=== PATIENT | male | born 1990 | race Caucasian/White ===

== ENCOUNTER 2017-03-18 17:12 | Emergency (ER) | payer BC ==
[2017-03-18 17:22] VITALS: BP 155/99
[2017-03-18] MEDS ORDERED: Ibuprofen TAB* 800 MG PO ONE (19:24)
--- NOTE | 2017-03-18 19:38 | ED ---
Throat Pain/Nasal Congestion - HPI Summary HPI Summary: Pt here w/ Lt side facial swelling today. Has had Lt upper dental pain for a couple of days. Previous crack in tooth here. Has been eating and drinking well w/o difficulty - no trouble breathing or swallowing. Denies fever, chills, N/V/D , cough, DOMINGUEZ, neck pain/stiffness. Has tried tylenol, oragel, mouthwash w/o relief of facial swelling. Also noticed he has a bump on his gums. Denies drainage or foul taste in mouth. - History of Current Complaint Chief Complaint: EDDentalPain Time Seen by Provider: 03/18/17 18:31 Hx Obtained From: Patient - Allergies/Home Medications Allergies/Adverse Reactions: Allergies Allergy/AdvReac Type Severity Reaction Status Date / Time Penicillins [PCN] Allergy Hives Verified 03/18/17 17:18 PMH/Surg Hx/FS Hx/Imm Hx Previously Healthy: Yes Endocrine/Hematology History: Denies: Hx Anticoagulant Therapy, Hx Blood Disorders, Hx Diabetes, Autoimmune Disease Infectious Disease History: No Infectious Disease History: Denies: Traveled Outside the [place] in Last 30 Days - Family History Known Family History: Positive: Diabetes - grandparents - Social History Occupation: Employed Full-time Lives: Alone Alcohol Use: Rare Hx Substance Use: No Substance Use Type: Reports: None Hx Tobacco Use: No Smoking Status (MU): Former Smoker Review of Systems Negative: Fever, Chills Negative: Photophobia, Blurred Vision, Diplopia, Drainage, Erythema Positive: Dental Pain - see HPI. Negative: Sore Throat, Ear Ache, Nasal Discharge Negative: Chest Pain Negative: Cough Negative: Vomiting, Nausea Positive: no symptoms reported Negative: Arthralgia, Myalgia Negative: Rash, Bruising Neurological: Negative Psychological: Normal All Other Systems Reviewed And Are Negative: Yes Physical Exam Triage Information Reviewed: Yes Vital Signs On Initial Exam: Initial Vitals Temp Pulse Resp BP Pulse Ox 98.3 F 85 18 155/99 100 03/18/17 17:19 03/18/17 17:19 03/18/17 17:19 03/18/17 17:19 03/18/17 17:19 Vital Signs Reviewed: Yes Appearance: Positive: Well-Appearing, Pain Distress - mild, Obese Skin: Positive: Warm, Dry - no erythema over face Head/Face: Positive: Other - mild blunting of Lt nasolabial fold compared to Rt - mild TTP here Eyes: Positive: Normal, EOMI, Conjunctiva Clear. Negative: Conjunctiva Inflammed, Discharge ENT: Positive: Normal ENT inspection, Hearing grossly normal, Pharynx normal, TMs normal. Negative: Nasal congestion, Nasal drainage, Tonsillar exudate, Trismus, Muffled/hoarse voice Dental: Positive: Gross Decay/Caries @ - boggy pocket of edema above affected tooth in Lt mandible - TTP Neck: Positive: Supple, Nontender, No Lymphadenopathy Respiratory/Lung Sounds: Positive: Breath Sounds Present. Negative: Stridor Cardiovascular: Positive: Normal, RRR Abdomen Description: Positive: Nontender, Soft Musculoskeletal: Positive: Normal, Strength/ROM Intact Neurological: Positive: Normal, Alert, Oriented to Person Place, Time, CN Intact II-III Psychiatric: Positive: Normal Procedures - Procedure Summary Procedure Summary: lidocaine topical applied to affected area of gingiva for 20 mins - removed and lidocaine injected into gingival tissue - 0.25cm incision made w/ #15 blade - blood and purulent drainage expressed and cx'd - pt reports mild relief of facial pressure/swelling - rinsed mouth copiously after with sterile saline for 5 minutes - bleeding controlled -sterile gauze placed over incision to absorb further drainage. Pt tolerated well. Diagnostics - Vital Signs Vital Signs Temp Pulse Resp BP Pulse Ox 03/18/17 17:19 98.3 F 85 18 155/99 100 - Laboratory Lab Statement: Any lab studies that have been ordered have been reviewed, and results considered in the medical decision making process. Re-Evaluation - Re-Evaluation First Eval Change: Improved EENT Course/Dx - Diagnoses Provider Diagnoses: Dental abscess Discharge - Discharge Plan Condition: Stable Disposition: HOME Prescriptions: Clindamycin CAP* [Cleocin 150 MG CAP*] 300 mg PO Q8HR #54 cap Patient Education Materials: Dental Abscess (ED) Referrals: Donovan Gould MD [Primary Care Provider] - Additional Instructions: Rinse mouth 5-6 x day with salt water and after each meal Take ibuprofen alternating with acetaminophen as needed for pain Complete antibiotics Keep appointment with dentist Sunday *if you develop headache, fever, eye pain, neck pain, trouble breathing/ swallowing, return to ED
[2017-03-18] MEDS ORDERED: Clindamycin CAP* 150 MG PO ONE ×2 (20:05)
== END 2017-03-18 20:22 | disposition home or self-care (01) ==
LOC: ED 17:12
DX: K04.7 Periapical abscess without sinus (principal); Z87.891 Personal history of nicotine dependence; Z88.0 Allergy status to penicillin
CPT/HCPCS: 41800; 87070; 87077; 87205; 99282; A9270-GY

== ENCOUNTER 2020-09-07 13:41 | Inpatient (IN) ==
[2020-09-07] MEDS ORDERED: NS 0.9% 1000 ml BAG 1,000 ML IV ONE ×2 (14:00→15:56)
[2020-09-07] MEDS ORDERED: Al Hydrox/Mg Hydrox/Simet LIQ 30 ML UDC PO ONE (14:01)
[2020-09-07 14:26] LABS: ABS Basophils 0.1 10^3/ul (0-0.2); ABS Eosinophils 0.1 10^3/ul (0-0.6); ABS Lymphocytes 0.4 10^3/ul (1.0-4.8); ABS Monocytes 0.7 10^3/ul (0-0.8); ABS Neutrophils 9.8 10^3/ul (1.5-7.7); Eosinophil % 0.5 %; Hematocrit 47 % (42-52); Hemoglobin 16.5 g/dL (14.0-18.0); Lymphocyte % 4.1 %; Mean Corpuscular HGB Conc 35 g/dL (31-36); Mean Corpuscular Hemoglobin 30 pg (27-31); Mean Corpuscular Volume 87 fL (80-94); Platelet Count 291 10^3/uL (150-450); Red Blood Count 5.44 10^6 /uL (4.18-5.48); Red Cell Distribution Width 14 % (10-15)
[2020-09-07 14:44] LABS: Albumin 4.6 g/dL (3.2-5.2); Albumin/Globulin Ratio 1.7 (1-3); BUN/Creatinine Ratio 14.5 (8-20); C Reactive Protein 15.35 mg/L (<8.01); Calcium 9.3 mg/dL (8.6-10.3); EGFR African American 144.8 (>60); EGFR Non-African American 119.6 (>60); Globulin 2.7 g/dL (2-4); Potassium 4.2 mmol/L (3.5-5.0); Total Bilirubin 6.2 mg/dL (0.2-1.0); Total Protein 7.3 g/dL (6.4-8.9)
[2020-09-07] MEDS ORDERED: Iohexol 300 (CONTRAST) 10 ML SDV IV ONE (15:09)
[2020-09-07] MEDS ORDERED: HYDROmorphone 1 MG/1 ML SYRINGE IV SLOW PU ONE (16:14)
[2020-09-07 16:42] LABS: Indirect Bilirubin 1.7 mg/dL (0.3-1.0)
[2020-09-07] MEDS ORDERED: NS 0.9% 1000 ml BAG 500 ML IV ONE (17:54)
[2020-09-07] MEDS ORDERED: HYDROmorphone 1 MG/1 ML SYRINGE IV SLOW PU PRN (17:56)
[2020-09-07] MEDS ORDERED: Ondansetron 4 mg VIAL 2 MG/ML 2 ml VIAL IV PRN (17:57)
[2020-09-07] MEDS ORDERED: NS 0.9% 1000 ml BAG 1,000 ML IV SCH (18:00)
[2020-09-07 20:28] LABS: Urine Appearance Clear; Urine Bacteria Absent (Absent); Urine Bilirubin 2+ (Negative); Urine Blood Negative (Negative); Urine Color Amber; Urine Glucose 2+(150 mg/dL) (Negative); Urine Ketones Negative (Negative); Urine Nitrite Negative (Negative); Urine Protein 1+(30 mg/dL) (Negative); Urine Red Blood Cell Trace(0-2/hpf) (Absent); Urine Squamous Epithelial Cell Present (Absent); Urine Urobilinogen Positive (Negative); Urine White Blood Cell Trace(0-5/hpf) (Absent)
[2020-09-07 20:49] LABS: Urine Specific Gravity > 1.030 (1.010-1.030)
[2020-09-07] MEDS: HYDROmorphone 0.5 MG/0.5 ML SYRINGE IV SLOW PU PRN (23:15)
[2020-09-07] MEDS: NS 0.9% 1000 ml BAG 1,000 ML IV SCH (23:24)
[2020-09-08] MEDS: NS 0.9% 1000 ml BAG 1,000 ML IV SCH ×2 (02:50→16:06)
[2020-09-08] MEDS: HYDROmorphone 0.5 MG/0.5 ML SYRINGE IV SLOW PU PRN ×2 (08:50→13:10)
[2020-09-08 10:06] LABS: ABS Basophils 0.1 10^3/ul (0-0.2); ABS Eosinophils 0.1 10^3/ul (0-0.6); ABS Lymphocytes 0.6 10^3/ul (1.0-4.8); ABS Monocytes 0.7 10^3/ul (0-0.8); ABS Neutrophils 10.7 10^3/ul (1.5-7.7); Eosinophil % 0.6 %; Hematocrit 41 % (42-52); Hemoglobin 13.9 g/dL (14.0-18.0); Mean Corpuscular HGB Conc 34 g/dL (31-36); Mean Corpuscular Hemoglobin 30 pg (27-31); Mean Corpuscular Volume 87 fL (80-94); Mean Platelet Volume 8.7 fL (7.4-10.4); Platelet Count 242 10^3/uL (150-450); Red Blood Count 4.66 10^6 /uL (4.18-5.48); Red Cell Distribution Width 14 % (10-15); White Blood Count 12.1 10^3/uL (3.5-10.8)
[2020-09-08 10:13] LABS: INR 1.2 (0.82-1.09)
[2020-09-08 10:30] LABS: Albumin 3.9 g/dL (3.2-5.2); Albumin/Globulin Ratio 1.6 (1-3); Calcium 8.5 mg/dL (8.6-10.3); EGFR African American 210.2 (>60); EGFR Non-African American 173.7 (>60); Globulin 2.4 g/dL (2-4); Potassium 3.6 mmol/L (3.5-5.0); Total Bilirubin 2.7 mg/dL (0.2-1.0); Total Protein 6.3 g/dL (6.4-8.9)
[2020-09-09] MEDS: HYDROmorphone 0.5 MG/0.5 ML SYRINGE IV SLOW PU PRN (00:30)
[2020-09-09 05:40] LABS: ABS Basophils 0.1 10^3/ul (0-0.2); ABS Eosinophils 0.1 10^3/ul (0-0.6); ABS Lymphocytes 0.7 10^3/ul (1.0-4.8); ABS Monocytes 1.1 10^3/ul (0-0.8); Eosinophil % 0.7 %; Hematocrit 35 % (42-52); Hemoglobin 12.2 g/dL (14.0-18.0); Mean Corpuscular HGB Conc 35 g/dL (31-36); Mean Corpuscular Hemoglobin 30 pg (27-31); Mean Corpuscular Volume 87 fL (80-94); Mean Platelet Volume 8.8 fL (7.4-10.4); Platelet Count 197 10^3/uL (150-450); Red Blood Count 4.02 10^6 /uL (4.18-5.48); Red Cell Distribution Width 13 % (10-15)
[2020-09-09 06:00] LABS: Albumin 3.6 g/dL (3.2-5.2); Albumin/Globulin Ratio 1.5 (1-3); BUN/Creatinine Ratio 17.7 (8-20); Calcium 8.4 mg/dL (8.6-10.3); EGFR African American 183.1 (>60); EGFR Non-African American 151.3 (>60); Globulin 2.4 g/dL (2-4); Potassium 3.3 mmol/L (3.5-5.0); Total Bilirubin 1.9 mg/dL (0.2-1.0)
[2020-09-09] MEDS: NS 0.9% 1000 ml BAG 1,000 ML IV SCH ×2 (07:09→15:26)
[2020-09-09] MEDS ORDERED: KCL 20 MEQ/100 ML IVPREMIX 20 MEQ/100 ML BAG IV ONE (11:16)
[2020-09-10] MEDS: NS 0.9% 1000 ml BAG 1,000 ML IV SCH ×2 (00:04→11:25)
[2020-09-10 08:33] LABS: ABS Basophils 0.1 10^3/ul (0-0.2); ABS Eosinophils 0.2 10^3/ul (0-0.6); ABS Lymphocytes 0.9 10^3/ul (1.0-4.8); ABS Neutrophils 8.9 10^3/ul (1.5-7.7); Eosinophil % 1.6 %; Hematocrit 34 % (42-52); Hemoglobin 12.1 g/dL (14.0-18.0); Lymphocyte % 8.2 %; Mean Corpuscular HGB Conc 35 g/dL (31-36); Mean Corpuscular Hemoglobin 31 pg (27-31); Mean Corpuscular Volume 87 fL (80-94); Mean Platelet Volume 8.6 fL (7.4-10.4); Platelet Count 205 10^3/uL (150-450); Red Blood Count 3.91 10^6 /uL (4.18-5.48); Red Cell Distribution Width 13 % (10-15); White Blood Count 11.1 10^3/uL (3.5-10.8)
[2020-09-10 08:43] LABS: Albumin 3.5 g/dL (3.2-5.2); Albumin/Globulin Ratio 1.4 (1-3); BUN/Creatinine Ratio 12.7 (8-20); Calcium 8.6 mg/dL (8.6-10.3); EGFR African American 179.7 (>60); EGFR Non-African American 148.5 (>60); Globulin 2.5 g/dL (2-4); Potassium 3.3 mmol/L (3.5-5.0); Total Bilirubin 1.4 mg/dL (0.2-1.0)
[2020-09-10] MEDS ORDERED: KCL 20 MEQ/100 ML IVPREMIX 20 MEQ/100 ML BAG IV ONE (11:54)
[2020-09-10] MEDS ORDERED: Potassium Chlor 10 meq TAB PO ONE (14:13)
[2020-09-10 17:47] VITALS: BP 154/81
== END 2020-09-10 16:30 | disposition home or self-care (01) | DRG 439 ==
LOC: MED 13:41 → ED 13:41 → MED 20:31
PROVIDERS: ADMIT Internal Medicine; ATTEND Internal Medicine

== ENCOUNTER 2021-03-27 21:55 | Inpatient (IN) ==
[2021-03-27] MEDS ORDERED: NS 0.9% 1000 ml BAG 1,000 ML IV ONE (22:43)
[2021-03-27] MEDS ORDERED: Ondansetron 4 mg VIAL 2 MG/ML 2 ml VIAL IV ONE (22:43)
[2021-03-28 00:19] LABS: ABS Eosinophils 0.1 10^3/ul (0-0.6); ABS Lymphocytes 0.5 10^3/ul (1.0-4.8); ABS Monocytes 1.2 10^3/ul (0-0.8); ABS Neutrophils 13.6 10^3/ul (1.5-7.7); Eosinophil % 0.3 %; Hematocrit 47 % (42-52); Hemoglobin 16.7 g/dL (14.0-18.0); Lymphocyte % 3.5 %; Mean Corpuscular HGB Conc 35 g/dL (31-36); Mean Corpuscular Hemoglobin 31 pg (27-31); Mean Corpuscular Volume 87 fL (80-94); Mean Platelet Volume 9.4 fL (7.4-10.4); Platelet Count 276 10^3/uL (150-450); Red Blood Count 5.41 10^6 /uL (4.18-5.48); Red Cell Distribution Width 13 % (10-15); White Blood Count 15.4 10^3/uL (3.5-10.8)
[2021-03-28 00:39] LABS: AST 491 U/L (13-39); Albumin 4.7 g/dL (3.2-5.2); Albumin/Globulin Ratio 1.7 (1-3); Alcohol, S < 10 mg/dL (<10); Alkaline Phosphatase 150 U/L (35-149); Anion Gap 7 mmol/L (2-11); Blood Urea Nitrogen 13 mg/dL (6-24); C Reactive Protein 4.45 mg/L (<8.01); CO2 Carbon Dioxide 26 mmol/L (22-32); Calcium 9.3 mg/dL (8.6-10.3); Chloride 102 mmol/L (101-111); EGFR African American 132.6 (>60); EGFR Non-African American 109.6 (>60); Globulin 2.7 g/dL (2-4); Glucose 242 mg/dL (70-100); Potassium 4.1 mmol/L (3.5-5.0); Sodium 135 mmol/L (135-145); Total Protein 7.4 g/dL (6.4-8.9)
[2021-03-28 00:56] LABS: ALT 735 U/L (7-52); Lipase 4800 U/L (11.0-82.0)
[2021-03-28] MEDS ORDERED: NS 0.9% 1000 ml BAG 1,000 ML IV ONE (01:04)
[2021-03-28] MEDS ORDERED: Ondansetron 4 mg VIAL 2 MG/ML 2 ml VIAL IV PRN (02:22)
[2021-03-28] MEDS: HYDROmorphone 0.5 MG/0.5 ML SYRINGE IV SLOW PU PRN ×6 (02:26→21:36)
[2021-03-28 02:31] LABS: LDH 600 U/L (140-271)
[2021-03-28 02:34] LABS: Triglycerides 177 mg/dL
[2021-03-28] MEDS: Lactated Ringers 1000 ml BAG 1,000 ML IV SCH ×2 (04:03→09:34)
[2021-03-28 05:03] LABS: ABS Basophils 0.2 10^3/ul (0-0.2); ABS Lymphocytes 0.4 10^3/ul (1.0-4.8); ABS Monocytes 0.8 10^3/ul (0-0.8); ABS Neutrophils 12.8 10^3/ul (1.5-7.7); Eosinophil % 0.1 %; Hematocrit 43 % (42-52); Hemoglobin 15.4 g/dL (14.0-18.0); Lymphocyte % 2.7 %; Mean Corpuscular HGB Conc 35 g/dL (31-36); Mean Corpuscular Hemoglobin 31 pg (27-31); Mean Corpuscular Volume 87 fL (80-94); Mean Platelet Volume 9.2 fL (7.4-10.4); Platelet Count 275 10^3/uL (150-450); Red Blood Count 5.01 10^6 /uL (4.18-5.48); Red Cell Distribution Width 13 % (10-15); White Blood Count 14.2 10^3/uL (3.5-10.8)
[2021-03-28 05:23] LABS: Albumin 4.1 g/dL (3.2-5.2); Albumin/Globulin Ratio 1.8 (1-3); Calcium 8.4 mg/dL (8.6-10.3); EGFR African American 154.1 (>60); EGFR Non-African American 127.3 (>60); Globulin 2.3 g/dL (2-4); Indirect Bilirubin 1.2 mg/dL (0.3-1.0); Potassium 4.4 mmol/L (3.5-5.0); Total Bilirubin 4.8 mg/dL (0.2-1.0); Total Protein 6.4 g/dL (6.4-8.9)
[2021-03-28] MEDS ORDERED: Magnesium Hydroxide LIQ 30 ML UDC PO PRN (12:49)
[2021-03-28] MEDS ORDERED: Senna TAB 8.6 mg TAB PO PRN (12:49)
[2021-03-28] MEDS ORDERED: Lactated Ringers 1000 ml BAG 1,000 ML IV SCH (15:34)
[2021-03-29 00:23] VITALS: BP 151/90
[2021-03-29] MEDS: HYDROmorphone 0.5 MG/0.5 ML SYRINGE IV SLOW PU PRN (00:55)
== END 2021-03-29 01:48 | disposition short-term general hospital (02) ==
LOC: ED 21:55 → SSU 03-28 02:22
PROVIDERS: ADMIT Pediatrics; ATTEND Hospitalist